=== PATIENT | male | born 1955 | race Caucasian/White ===

== ENCOUNTER 2022-01-17 07:49 | Outpatient (CLI) | payer OTHER ==
[~2022-01-17] VITALS: Ht 175.3 cm; Wt 133.6 kg
[2022-01-21] MEDS ORDERED: TMSL.4C PO (13:26)
[2022-01-21] MEDS ORDERED: ALLO100T PO (13:26)
[2022-01-21] MEDS ORDERED: ISOS10TA8 PO (13:26)
[2022-01-21] MEDS ORDERED: INSU100C3 SQ (13:26)
[2022-01-21] MEDS ORDERED: INSU100V6 SQ (13:26)
[2022-01-21] MEDS ORDERED: CARV6.252 PO (13:26)
== END 2022-01-21 13:29 | disposition home or self-care (01) ==
LOC: PREOP 07:49
PROVIDERS: ATTEND Specialist
DX: Z01.818 Encounter for other preprocedural examination (principal)

== ENCOUNTER 2022-01-25 10:33 | Day surgery (SDC) | payer MEDICARE, OTHER ==
[~2022-01-25] VITALS: Ht 175.3 cm; Wt 133.6 kg
[~2022-01-25 10:33] MED LIST: ALLO100T PO; CARV6.252 PO; INSU100C3 SQ; INSU100V6 SQ; ISOS10TA8 PO; TMSL.4C PO
[2022-01-25] MEDS ORDERED: MOXIFLOXACIN OPHTH SOLN 5 MG/ML 0.3 ML SYRINGE OP ONE (12:15)
[2022-01-25] MEDS ORDERED: POVIDONE (BETADINE) OPHTH SOLN 5% 30 ML OP ONE (12:15)
[2022-01-25] MEDS ORDERED: LIDOCAINE PF 1% 2 ML VIAL IR PRN (12:15)
[2022-01-25] MEDS ORDERED: TIMOLOL MALEATE 0.5% 5 ML (TIMOPTIC) BTL OU PRN (12:15)
[2022-01-25] MEDS: TETRACAINE 0.5% OPHTH SOLN 4 ML BTL (SINGLE DOSE ONLY) OU PRN ×4 (12:17→12:37)
[2022-01-25] MEDS: TROPICAMIDE 1% OPH SOLN (MYDRIACYL) 15 ML BTL OP SCH ×3 (12:26→12:37)
[2022-01-25] MEDS: PHENYLEPHRINE 10% OPHTH (NEO-SYN) 5 ML BTL OU SCH ×3 (12:26→12:37)
[2022-01-25 12:33] VITALS: BP 127/73
[2022-01-25] MEDS ORDERED: MIDAZOLAM 2 MG/2 ML (VERSED) VIAL ONE (12:49)
--- NOTE | 2022-01-25 13:09 | Ophthalmologist Pre-Op Note ---
Pre-Operative Progress Note H&P Reviewed The H&P was reviewed, patient examined and no changes noted. Date H&P Reviewed: Jan 25, 2022 Time H&P Reviewed: 13:09 Pre-Op Dx Cataract, Left Eye LOLY LEMUS MD Jan 25, 2022 13:09
--- NOTE | 2022-01-25 13:24 | Anesthesia-General Post-Op ---
MAC Patient Condition Mental Status/LOC: Same as Preop Cardiovascular: Satisfactory Nausea/Vomiting: Absent Respiratory: Satisfactory Pain: Controlled Complications: Absent Post Op Complications Complications None Follow Up Care/Instructions Patient Instructions None needed. Anesthesiology Discharge Order Discharge Order Patient is doing well, no complaints, stable vital signs, no apparent adverse anesthesia problems. No complications reported per nursing. CLARA BOB CRNA Jan 25, 2022 13:23
--- NOTE | 2022-01-25 13:29 | Ophthalmology Operative Report ---
Cataract removal/placement IOL PREOPERATIVE DIAGNOSIS: Cataract Left Eye POSTOPERATIVE DIAGNOSIS: Cataract Left Eye PROCEDURE: Cataract removal and placement of posterior chamber implant, left eye SURGEON: Barrie Lemus ANESTHESIA: Topical with sedation COMPLICATIONS: None ESTIMATED BLOOD LOSS: Minimal DESCRIPTION OF PROCEDURE: After proper informed consent was obtained, the patient, a 66 male, was taken to the Operating Room and the left eye was anesthetized with tetracaine. The left eye was then prepped and draped in the usual manner. A wire lid speculum was placed. A paracentesis was made at the left hand position. Preservative free lidocaine was injected into the anterior chamber followed by viscoelastic. A clear corneal incision was made in the temporal position. A capsulorrhexis was preformed and the central nuclear and cortical material were removed. The posterior capsule was polished and an Leroy 19.0 AU00T0 was placed into the capsular bag. The residual viscoelastic was aspirated and balanced saline solution was injected into the anterior chamber. Moxifloxacin was injected into the anterior chamber. The wound was checked and found to be water tight. The patient tolerated the procedure well without complications. BARRIE LEMUS MD Jan 25, 2022 13:29
[2022-01-25 13:36] VITALS: BP 107/71
[2022-01-25] MEDS ORDERED: acetaZOLAMIDE ER 500 MG CAP (DIAMOX SEQUELS) PO ONE (14:00)
== END 2022-01-25 13:38 | disposition home or self-care (01) ==
LOC: SDC 10:33
PROVIDERS: ATTEND Specialist
DX: E11.36 Type 2 diabetes mellitus with diabetic cataract (principal); H25.9 Unspecified age-related cataract; Z87.891 Personal history of nicotine dependence; Z95.1 Presence of aortocoronary bypass graft; E66.01 Morbid (severe) obesity due to excess calories; Z68.41 Body mass index [BMI] 40.0-44.9, adult; Z79.4 Long term (current) use of insulin
CPT/HCPCS: 66984; 82947; V2632

== ENCOUNTER 2022-01-30 05:30 | Outpatient (CLI) | payer MEDICARE | END 2022-02-06 15:48 | disposition home or self-care (01) | LOC: PREOP 05:30 | PROVIDERS: ATTEND Specialist | DX: Z01.818 Encounter for other preprocedural examination (principal) ==

== ENCOUNTER 2022-02-08 08:51 | Day surgery (SDC) | payer MEDICARE ==
[~2022-02-08] VITALS: Ht 175.3 cm; Wt 133.6 kg
[2022-02-08] MEDS ORDERED: MOXIFLOXACIN OPHTH SOLN 5 MG/ML 0.3 ML SYRINGE OP ONE (09:00)
[2022-02-08] MEDS ORDERED: LIDOCAINE PF 1% 2 ML VIAL IR PRN (09:00)
[2022-02-08] MEDS ORDERED: POVIDONE (BETADINE) OPHTH SOLN 5% 30 ML OP ONE (09:00)
[2022-02-08] MEDS ORDERED: TIMOLOL MALEATE 0.5% 5 ML (TIMOPTIC) BTL OU PRN (09:00)
[2022-02-08] MEDS: TETRACAINE 0.5% OPHTH SOLN 4 ML BTL (SINGLE DOSE ONLY) OU PRN ×4 (09:08→09:27)
[2022-02-08] MEDS: TROPICAMIDE 1% OPH SOLN (MYDRIACYL) 15 ML BTL OP SCH ×3 (09:15→09:27)
[2022-02-08] MEDS: PHENYLEPHRINE 10% OPHTH (NEO-SYN) 5 ML BTL OU SCH ×3 (09:15→09:27)
[2022-02-08 09:21] VITALS: BP 138/71
--- NOTE | 2022-02-08 09:55 | Ophthalmologist Pre-Op Note ---
Pre-Operative Progress Note H&P Reviewed The H&P was reviewed, patient examined and no changes noted. Date H&P Reviewed: February 08, 2022 Time H&P Reviewed: 09:55 Pre-Op Dx Cataract, Right Eye LOLY LEMUS MD February 08, 2022 09:55
[2022-02-08] MEDS ORDERED: MIDAZOLAM 2 MG/2 ML (VERSED) VIAL ONE (10:00)
--- NOTE | 2022-02-08 10:17 | Ophthalmology Operative Report ---
Cataract removal/placement IOL PREOPERATIVE DIAGNOSIS: Cataract Right Eye POSTOPERATIVE DIAGNOSIS: Cataract Right Eye PROCEDURE: Cataract removal and placement of posterior chamber implant, right eye SURGEON: Barrie Lemus ANESTHESIA: Topical with sedation COMPLICATIONS: None ESTIMATED BLOOD LOSS: Minimal DESCRIPTION OF PROCEDURE: After proper informed consent was obtained, the patient, a 66 male, was taken to the Operating Room and the right eye was anesthetized with tetracaine. The right eye was then prepped and draped in the usual manner. A wire lid speculum was placed. A paracentesis was made at the left hand position. Preservative free lidocaine was injected into the anterior chamber followed by viscoelastic. A clear corneal incision was made in the temporal position. A capsulorrhexis was preformed and the central nuclear and cortical material were removed. The posterior capsule was polished and Leroy 19.5 AU00T0 IOL was placed into the capsular bag. The residual viscoelastic was aspirated and balanced saline solution was injected into the anterior chamber. Moxifloxacin was injected into the anterior chamber. The wound was checked and found to be water tight. The patient tolerated the procedure well without complications. BARRIE LEMUS MD February 08, 2022 10:17
[2022-02-08 10:23] VITALS: BP 153/73
[2022-02-08] MEDS ORDERED: acetaZOLAMIDE ER 500 MG CAP (DIAMOX SEQUELS) PO ONE (11:30)
--- NOTE | 2022-02-08 14:29 | Anesthesia-General Post-Op ---
MAC Patient Condition Mental Status/LOC: Same as Preop Cardiovascular: Satisfactory Nausea/Vomiting: Absent Respiratory: Satisfactory Pain: Controlled Complications: Absent Post Op Complications Complications None Follow Up Care/Instructions Patient Instructions None needed. Anesthesiology Discharge Order Discharge Order Patient is doing well, no complaints, stable vital signs, no apparent adverse anesthesia problems. No complications reported per nursing. MARIYA WILLIS CRNA February 08, 2022 14:29
== END 2022-02-08 10:24 | disposition home or self-care (01) ==
LOC: SDC 08:51
PROVIDERS: ATTEND Specialist
DX: H25.9 Unspecified age-related cataract (principal); E11.9 Type 2 diabetes mellitus without complications; Z79.4 Long term (current) use of insulin; Z87.891 Personal history of nicotine dependence
CPT/HCPCS: 66984; 82947; V2632

== ENCOUNTER → 2022-07-10 | Outpatient (CLI) | payer MEDICARE | END | disposition home or self-care (01) | LOC: PREOP 05:33 | PROVIDERS: ATTEND Podiatrist Foot & Ankle Surgery | DX: Z01.818 Encounter for other preprocedural examination (principal) ==